=== PATIENT | female | born 1955 | race Caucasian/White ===

== ENCOUNTER 2024-01-01 11:55 | Inpatient (IN) | payer OTHER ==
[2024-01-01 12:59] LABS: Bilirubin Neg (Negative); Blood, Urine 25 (Negative); Clarity Slightly Cloudy (Clear); Glucose, Urine (Dipstick) >=1000 mg/dL (Negative); Ketone, Urine Negative (Negative); Leukocyte 500 (Negative); Nitrite Positive (Negative); Protein, Urine (Dipstick) 15 mg/dl (Neg-Trace); Urobilinogen Normal mg/dL (Less than 2); pH, Urine 6.5 (5.0-9.0)
[2024-01-01 13:11] LABS: PTT 24.9 sec (22.0-33.0); Prothrombin Time 10.8 sec (9.5-12.1)
[2024-01-01 13:11] LABS: #Basophils 0.06 10x3/uL (0.0-0.2); #Eosinophils 0.03 10x3/uL (0.0-0.5); #Monocytes 0.44 10x3/uL (0.0-1.1); #Neutrophils 7.58 10x3/uL (1.5-8.4); %Basophils 0.6 % (0.0-2.0); %Eosinophils 0.3 % (0.0-6.0); %Lymphocytes 14.8 % (18.0-47.0); %Monocytes 4.6 % (0.0-10.0); %Neutrophils 79.1 % (40.0-75.0); Hematocrit 37.9 % (34.9-44.5); Hemoglobin 11.8 g/dL (12.0-15.5); Mean Corpuscular HGB CONC 31.1 g/dL (32.0-36.0); Mean Corpuscular Hemoglobin 27.8 pg (27.0-33.0); Mean Corpuscular Volume 89.2 fL (81.6-98.3); Mean Platelet Volume 8.9 fL (7.4-10.4); Platelet Count 264 10x3/uL (150-450); RBC Distribution Width 13.6 % (11.5-14.5); Red Blood Cell (RBC) Count 4.25 10x6/uL (3.90-5.03); White Blood Cell (WBC) Count 9.6 10x3/uL (3.5-10.5)
[2024-01-01 13:14] LABS: ALT (SGPT) 26 U/L (8-55); AST (SGOT) 36 U/L (5-34); Albumin 3.8 g/dL (3.4-4.8); Alkaline Phosphatase 89 U/L (40-110); Anion Gap 16 mmol/L (10-20); BUN (Urea Nitrogen) 27 mg/dL (9.8-20.1); Bilirubin, Total 0.3 mg/dL (0.2-1.2); Calc. Creatinine Clearance 0 mL/min (70-130); Calcium 10.1 mg/dL (7.8-10.44); Carbon Dioxide 23 mmol/L (23-31); Chloride 104 mmol/L (98-107); Estimated GFR 58; Globulin 4.2 g/dL (2.4-3.5); Glucose 181 mg/dL (80-115); Lipase 17 U/L (8-78); Potassium 4.1 mmol/L (3.5-5.1); Sodium 139 mmol/L (136-145)
[2024-01-01 13:17] LABS: Bacteria/HPF 4+ HPF (None Seen); CAUTI Indications for Culture Alt mental st,lethar; Mucous/LPF 1+ LPF (<2+); RBC/HPF 0-3 HPF (0-3); Urine Culture Reflex Yes Yes; WBC/HPF 21-50 HPF (0-3)
[2024-01-01] MEDS ORDERED: cefTRIAXone (ROCEPHIN) 1 GM VIAL ONE (13:44)
[2024-01-01] MEDS ORDERED: Albuterol 2.5 MG (3 mL) NEB NEB PRN (15:23)
[2024-01-01] MEDS ORDERED: Glucagon 1 MG/ML KIT IM PRN (15:27)
[2024-01-01] MEDS ORDERED: Dextrose 50% Abboject 50 ML SYRINGE SLOW IVP PRN (15:27)
[2024-01-01] MEDS ORDERED: Dextrose 5% in Water 1,000 ML IV PRN (15:27)
[2024-01-01] MEDS ORDERED: Acetaminophen 650 MG Suppository PR PRN (15:34)
[2024-01-01] MEDS ORDERED: Senokot S 8.6-50 MG TAB PO PRN (15:34)
[2024-01-01 16:14] VITALS: BMI 37.7
[2024-01-01] MEDS: Oseltamivir 75 MG CAP PO SCH ×2 (16:56→21:02)
[2024-01-01] MEDS: Sodium Chloride 0.45% 1,000 ML IV SCH (17:17)
[2024-01-01] MEDS: Pantoprazole DR 40 MG TAB PO SCH (21:04)
[2024-01-01] MEDS: FLUoxetine HCl 20 MG CAP PO SCH (21:04)
[2024-01-01] MEDS: busPIRone HCl 15 MG TAB PO SCH (21:04)
[2024-01-01] MEDS: Clotrimazole 1% Cream 15 GM TUBE TOP SCH (21:05)
[2024-01-01] MEDS: Heparin 5,000 UNITS/ML VIAL SC SCH (21:06)
[2024-01-02 04:40] LABS: #Basophils 0.05 10x3/uL (0.0-0.2); #Eosinophils 0.16 10x3/uL (0.0-0.5); #Monocytes 0.46 10x3/uL (0.0-1.1); #Neutrophils 6.49 10x3/uL (1.5-8.4); %Basophils 0.5 % (0.0-2.0); %Eosinophils 1.7 % (0.0-6.0); %Lymphocytes 21.5 % (18.0-47.0); %Neutrophils 70.8 % (40.0-75.0); Hematocrit 34.4 % (34.9-44.5); Hemoglobin 10.9 g/dL (12.0-15.5); Mean Corpuscular HGB CONC 31.7 g/dL (32.0-36.0); Mean Corpuscular Hemoglobin 27.6 pg (27.0-33.0); Mean Corpuscular Volume 87.1 fL (81.6-98.3); Platelet Count 246 10x3/uL (150-450); RBC Distribution Width 13.7 % (11.5-14.5); Red Blood Cell (RBC) Count 3.95 10x6/uL (3.90-5.03); White Blood Cell (WBC) Count 9.2 10x3/uL (3.5-10.5)
[2024-01-02 04:50] LABS: Anion Gap 15 mmol/L (10-20); BUN (Urea Nitrogen) 23 mg/dL (9.8-20.1); Calc. Creatinine Clearance 93 mL/min (70-130); Calcium 9.2 mg/dL (7.8-10.44); Carbon Dioxide 21 mmol/L (23-31); Chloride 106 mmol/L (98-107); Estimated GFR 73; Glucose 191 mg/dL (80-115); Potassium 3.7 mmol/L (3.5-5.1); Sodium 138 mmol/L (136-145)
[2024-01-02] MEDS: Levothyroxine 150 MCG TAB PO SCH (06:10)
[2024-01-02] MEDS: Loratadine 10 MG TAB PO SCH (09:17)
[2024-01-02] MEDS: Clopidogrel Bisulfate 75 MG TAB PO SCH (09:17)
[2024-01-02] MEDS: Multivit, Therapeutic 1 TAB PO SCH (09:17)
[2024-01-02] MEDS: Ascorbic Acid 500 mg Chewable Tablet PO SCH (09:18)
[2024-01-02] MEDS: Aspirin 81 mg Enteric Coated Tablet PO SCH (09:18)
[2024-01-02] MEDS: Aripiprazole 10 MG TAB PO SCH (09:21)
[2024-01-02] MEDS: Lantus 1000 UNITS/10 ML VIAL SC SCH (12:11)
[2024-01-02] MEDS: Fluconazole 100 MG TAB PO SCH (12:14)
[2024-01-02] MEDS: Insulin Lispro 100 UNIT/ML 10 ML VIAL SC PRN ×2 (12:14→21:50)
[2024-01-02] MEDS: FLU (Fluad Triv) TS24-25 (65UP)/MF59C/PF 45 MCG/0.5 ML Syringe IM ONE (14:52)
[2024-01-02] MEDS: Icosapent Ethyl 1 GM CAPSULE PO SCH (16:23)
[2024-01-02] MEDS: Gabapentin 100 MG CAP PO SCH (16:24)
[2024-01-02] MEDS: cefTRIAXone\\ROCEPHIN 1 GM in Sodium Chloride 0.9% 100 ML IVPB SCH (16:27)
[2024-01-03 05:06] LABS: #Basophils 0.03 10x3/uL (0.0-0.2); #Eosinophils 0.18 10x3/uL (0.0-0.5); #Monocytes 0.46 10x3/uL (0.0-1.1); #Neutrophils 4.52 10x3/uL (1.5-8.4); %Basophils 0.4 % (0.0-2.0); %Eosinophils 2.4 % (0.0-6.0); %Monocytes 6.2 % (0.0-10.0); %Neutrophils 61.3 % (40.0-75.0); Hematocrit 36.7 % (34.9-44.5); Hemoglobin 11.5 g/dL (12.0-15.5); Mean Corpuscular HGB CONC 31.3 g/dL (32.0-36.0); Mean Corpuscular Hemoglobin 27.4 pg (27.0-33.0); Mean Corpuscular Volume 87.6 fL (81.6-98.3); Mean Platelet Volume 9.4 fL (7.4-10.4); Platelet Count 259 10x3/uL (150-450); RBC Distribution Width 13.8 % (11.5-14.5); Red Blood Cell (RBC) Count 4.19 10x6/uL (3.90-5.03); White Blood Cell (WBC) Count 7.4 10x3/uL (3.5-10.5)
[2024-01-03 05:25] LABS: Anion Gap 15 mmol/L (10-20); BUN (Urea Nitrogen) 20 mg/dL (9.8-20.1); Calc. Creatinine Clearance 88 mL/min (70-130); Calcium 9.5 mg/dL (7.8-10.44); Carbon Dioxide 21 mmol/L (23-31); Chloride 106 mmol/L (98-107); Estimated GFR 71; Glucose 214 mg/dL (80-115); Potassium 4.2 mmol/L (3.5-5.1); Sodium 138 mmol/L (136-145)
[2024-01-03] MEDS: Lantus 1000 UNITS/10 ML VIAL SC SCH (09:14)
[2024-01-03 20:23] VITALS: BMI 36.3
[2024-01-06] MEDS: Acetaminophen 325 MG TAB PO PRN (00:02)
[2024-01-06 08:21] VITALS: TEMP 98.3
[2024-01-06 11:25] VITALS: BP 157/74
== END 2024-01-06 13:25 | DRG 194 ==
LOC: CSHERS 11:55 → CSHTELE 14:20 → OBSVTOIN 01-02 15:54
PROVIDERS: ADMIT Family Medicine; ATTEND Hospitalist
DX: J10.1 Influenza due to other identified influenza virus with other respiratory manifestations (principal); I50.32 Chronic diastolic (congestive) heart failure; N39.0 Urinary tract infection, site not specified; E11.42 Type 2 diabetes mellitus with diabetic polyneuropathy; I11.0 Hypertensive heart disease with heart failure; I25.10 Atherosclerotic heart disease of native coronary artery without angina pectoris; J44.9 Chronic obstructive pulmonary disease, unspecified; Z66 Do not resuscitate; Z86.73 Personal history of transient ischemic attack (TIA), and cerebral infarction without residual deficits; E03.9 Hypothyroidism, unspecified; F41.9 Anxiety disorder, unspecified; F32.A Depression, unspecified; I25.2 Old myocardial infarction; E78.00 Pure hypercholesterolemia, unspecified; F17.210 Nicotine dependence, cigarettes, uncomplicated; Z79.82 Long term (current) use of aspirin; Z79.01 Long term (current) use of anticoagulants; Z90.49 Acquired absence of other specified parts of digestive tract; Z98.890 Other specified postprocedural states; Z79.4 Long term (current) use of insulin; Z79.899 Other long term (current) drug therapy
CPT/HCPCS: 36415; 36416; 51701; 71045; 72170; 80048; 80053; 81001; 83605; 83690; 83735; 83880; 85025; 85610; 85730; 87040; 87077; 87086; 87186; 87428; 93005; 94760; 96361; 96365; 97139; J0696; J1644; J1815